=== PATIENT | male | born 1950 | race Caucasian/White ===

== ENCOUNTER → 2017-07-10 | Outpatient (CLI) | payer OTHER ==
[~2017-07-10] MED LIST: TAPE1TAB9 PO; WARF1TAB PO
--- NOTE | 2017-07-10 13:44 | DIAGNOSTIC IMAGING REPORT ---
L UPPER EXT JOINT WITHOUT CLINICAL HISTORY: 67 years-old Male with LEFT SHOULDER PAIN. Acute left shoulder pain with weakness status post fall 1 week prior COMPARISON: Chest radiograph 05/12/2013 TECHNIQUE: Multiplanar, multi sequence MRI of the left shoulder was performed without intravenous contrast. FINDINGS: ROTATOR CUFF: There is moderate tendinosis of the supraspinatus with low-grade partial-thickness articular sided tearing of the anterior insertional fibers measuring 4 x 5 mm nicely seen on images 8 and 9 of series 6 and image 18 series 9. No high-grade partial or full-thickness rotator cuff tear identified. Mild tendinosis of the infraspinatus. The teres minor and subscapularis tendons appear intact. Mild subscapularis tendinosis. The rotator cuff musculature is normal in morphology and signal. BICEPS TENDON: There is moderate tendinosis of the intra-articular long head biceps tendon without tear identified. The biceps adele and anchor are intact. Indeterminate 3 mm cystic focus is seen adjacent to the lesser tuberosity medial to the long head biceps tendon on image 15 series 4 which may reflect a small ganglion. LABRUM: There is mild fraying of the superior labrum without evidence of acute labral tear. There is no evidence for a paralabral cyst. GLENOHUMERAL JOINT: There is mild chondral thinning of the glenohumeral joint with mild joint space narrowing and marginal spurring. Subcortical cystic changes are seen involving the posterior facet greater tuberosity. There is a trace glenohumeral joint effusion. There is no loose body or debris present within the glenohumeral joint. ACROMIOCLAVICULAR JOINT: Moderate to severe degenerative changes of the AC joint with prominent subcortical cystic changes, marginal spurring with capsular hypertrophy, joint space narrowing and small joint effusion. No evidence of os acromiale. There is mild subacromial/subdeltoid bursitis. OUTLET SPACES: The suprascapular notch and quadrilateral space are without obstructing or space occupying lesions. BONE MARROW: No focal abnormality, fracture or marrow occupying lesion. SOFT TISSUES: The periarticular soft tissues are unremarkable. IMPRESSION: 1. Moderate tendinosis of the supraspinatus tendon with small low-grade partial-thickness articular sided tearing of the anterior insertional fibers, 5 mm. No high-grade partial or full-thickness rotator cuff tear identified. 2. Moderate subscapularis and mild infraspinatus tendinosis. 3. Moderate tendinosis of the intra-articular portion of the long head biceps tendon without discrete tear identified. 4. Moderate to severe degenerative changes of the AC joint with mild subacromial/subdeltoid bursitis. The above report was generated using voice recognition software. It may contain grammatical, syntax or spelling errors. Electronically signed by: Derrick Morley M.D. 07/10/2017 1:43 PM Dictated Date/Time: 07/10/2017 1:34 PM
== END | disposition home or self-care (01) ==
LOC: C.MRIBC 12:51
PROVIDERS: ATTEND Orthopaedic Surgery
DX: M75.102 Unspecified rotator cuff tear or rupture of left shoulder, not specified as traumatic (principal); M67.912 Unspecified disorder of synovium and tendon, left shoulder

== ENCOUNTER → 2017-09-13 | Outpatient (CLI) | payer OTHER ==
[2017-09-13 13:39] LABS: BASO % 0.9 %; BASO ABS # 0.07 K/uL (0-0.2); EOS % 2.9 %; EOS ABS # 0.23 K/uL (0-0.5); HEMATOCRIT 40.7 % (42-52); HEMOGLOBIN 13.5 g/dL (14.0-18.0); IG# 0.02 K/uL (0.00-0.02); LYMPH % 16.5 %; LYMPH ABS # 1.29 K/uL (1.2-3.4); MEAN CELL VOLUME 86.6 fL (80-100); MEAN CORPUSCULAR HEMOGLOBIN 28.7 pg (25-34); MEAN CORPUSCULAR HGB CONC 33.2 g/dl (32-36); MEAN PLATELET VOLUME 11.1 fL (7.4-10.4); MONO % 10.1 %; MONO ABS # 0.79 K/uL (0.11-0.59); NEUT % 69.3 %; PLATELET COUNT 248 K/uL (130-400); RED CELL DISTRIBUTION WIDTH CV 14.3 % (11.5-14.5); RED CELL DISTRIBUTION WIDTH SD 45.5 fL (36.4-46.3)
== END | disposition home or self-care (01) ==
LOC: C.LABBC 10:23
PROVIDERS: ATTEND Orthopaedic Surgery
DX: M25.50 Pain in unspecified joint (principal)

== ENCOUNTER 2019-01-27 09:47 | Inpatient (IN) ==
--- NOTE | 2019-01-01 14:18 | PAT Medication Instructions ---
Medication Instructions Date of Service January 01, 2019 Home Medications diclofenac sodium 75 mg PO UD PRN lisinopril-hydrochlorothiazide See Rx Instructions .ROUTE .COMPLEX ASK your surgeon for instructions diclofenac sodium 75 mg PO UD PRN DO NOT take the morning of surgery lisinopril-hydrochlorothiazide See Rx Instructions .ROUTE .COMPLEX Other Notes If you have any questions please call us at [phone] or [phone] or [phone] or [phone]
--- NOTE | 2019-01-02 12:01 | Anesthesiology Consultation ---
Date of Service January 02, 2019 Assessment & Plan (1) Encounter for pre-operative examination: - K+ 5.3 on preop labs: Discussed with Dr. Romano-- recommendation to recheck AM DOS. Chart Review Chart Review: Acceptable Risk for Surgery and Patient seen in Pre Admission Testing Teaching & Discussion Pre-Anesthesia Teaching/Discussion Notes: Instructed NPO after midnight before surgery,except medications with 15 cc of water. Medication instructions provided according to the PAT guidelines. History Surgery Operation Date: 01/27/19 10:40 Proposed Procedures p Left Total Knee Arthroplasty - Tano Perez MD Height/Weight Height: 6 ft 3 in Weight: 121.1 kg Allergies Allergy/AdvReac Type Severity Reaction Status Date / Time acetone Allergy Unknown eye Verified 01/02/19 11:57 swelling, trouble breathing, facial flushing aspirin Allergy Unknown hives and Verified 12/26/18 08:05 swelling Medications Home Medications Medication Instructions Recorded Confirmed Last Taken diclofenac sodium 75 mg PO UD PRN 12/26/18 12/26/18 Unknown lisinopril-hydrochlorothiazide See Rx Instructions .ROUTE .COMPLEX 12/26/18 12/26/18 Unknown Past Medical History Medical History HTN (hypertension) non-compliant with BP medication- recommended compliance leading up to surgery (patient voiced understanding at PAT visit) History of sleep apnea hx device- not currently using History of tick-borne disease hx multiple tick bites= s/p abx x 21 days (08/2018) Obesity Exercise / Class Metabolic Activity II 4-5 Yardwork/Stairs/Walk up hill Past Family History Family History Mother Family history of diabetes mellitus (DM) Father Family history of diabetes mellitus (DM) Past Surgical History Surgical History History of appendectomy History of back surgery X3 ? History of colonoscopy History of left cataract surgery History of left knee surgery X2? History of right cataract surgery History of right knee surgery History of total right knee replacement Past Anesthesia History No Family Hx of Anesthesia Complications and Other Awareness with right TKA History of PONV No Hx of PONV and No Hx of Motion Sickness Social History Smoking Status: Former smoker Do You Dip or Chew Tobacco: No Smoking End Date: QUIT 20 YEARS AGO Hx Alcohol Use: Yes Alcohol type: wine alcohol intake frequency: holidays/special occasions only Hx Substance Use: No substance use type: does not use Review of Systems Patient denies chest pain, shortness of breath, dyspnea on exertion, reflux, cough, wheezing, palpitations. Physical Exam Vital Signs VITALS BP 150/85 (Patient advised to followup with PCP regarding elevated BP) P 57 TEMP 98.0 SP02 99%RA RESP 18 PHYSICAL Full neck and c-spine range of motion. Full TMJ range of motion. TMD 3 finger breaths Mallampati Score 1 Dentition: full upper dentures, missing lower sides/molars Lungs: clear throughout to auscultation Cardiac: regular rate and rhythm, no murmurs noted Spine: normal Carotid arteries: negative bruit Extremities: no edema Testing Laboratory Results 01/02/19 12:22 01/02/19 12:28 PT 10.9 Seconds (9.0-12.0) 01/02/19 12:28 INR 1.1 (0.9-1.1) 01/02/19 12:28 APTT 25.9 Seconds (21.0-31.0) 01/02/19 12:28 Blood Type O Positive 01/02/19 12:22 Antibody Screen NEGATIVE 01/02/19 12:22 Electrocardiogram Date: 01/02/19 Findings: + SB @ (55) Chest X-Ray Date: 01/02/19 Findings: + NAD
--- NOTE | 2019-01-02 12:49 | XRay Report ---
XR chest Pre-admission PA/Lat CLINICAL HISTORY: PAT preoperative COMPARISON STUDY: No previous studies for comparison. FINDINGS: The bones soft tissues and hemidiaphragms are normal. The cardiomediastinal silhouette is n ormal. The lungs are clear. The pulmonary vasculature is normal. IMPRESSION: Negative chest. The above report was generated using voice recognition software. It may contain grammatical, syntax or spelling errors. Electronically signed by: Armando Allen M.D. 01/02/2019 12:48 PM
[2019-01-02 14:13] LABS: Basophils # (auto) 0.07 K/uL (0-0.2); Basophils % (auto) 1.1 %; Eosinophils # (auto) 0.12 K/uL (0-0.5); Eosinophils % (auto) 1.8 %; Hematocrit (blood only) 39.9 % (42-52); Hemoglobin 13.3 g/dL (14.0-18.0); Immature Granulocytes # (auto) 0.01 K/uL (0.00-0.02); Immature Granulocytes % (auto) 0.2 %; Lymphocytes # (auto) 1.64 K/uL (1.2-3.4); Lymphocytes % (auto) 24.9 %; Mean Corpuscular Hemoglobin 29.2 pg (25-34); Mean Corpuscular Hgb Conc 33.3 g/dL (32-36); Mean Corpuscular Volume 87.7 fL (80-100); Mean Platelet Volume 10.4 fL (7.4-10.4); Monocytes # (auto) 0.65 K/uL (0.11-0.59); Monocytes % (auto) 9.9 %; Neutrophils % (auto) 62.1 %; Platelet Count 297 K/uL (130-400); RDW Standard Deviation 44.7 fL (36.4-46.3); Red Blood Count 4.55 M/uL (4.7-6.1); White Blood Count 6.59 K/uL (4.8-10.8)
[2019-01-02 14:27] LABS: INR 1.1 (0.9-1.1); Partial Thromboplastin Time 25.9 Seconds (21.0-31.0); Prothrombin Time 10.9 Seconds (9.0-12.0)
[2019-01-02 15:19] LABS: BUN Creatinine Ratio 21.4 (10-20); Calcium 9.3 mg/dl (8.5-10.1); Creatinine Clr Calc Pharmacy 102.9 ml/min; Est GFR (African American) 94.3; Est GFR (Non-African American) 81.3; Potassium 5.3 mmol/L (3.5-5.1)
--- NOTE | 2019-01-25 11:35 | History and Physical Report ---
DATE OF ADMISSION: 01/27/2019 CHIEF COMPLAINT: Left knee pain. HISTORY OF PRESENT ILLNESS: A 68-year-old gentleman who is well known to me from treatment of his right knee pain with replacement back in May 2013 and persistent treatment of his left knee pain over the past several years. His left knee pain has gotten worse over time. This has been a gradual process. We put an injection in his knees for the past 5 years. It has become less successful over time. He describes pain mostly medial, but some global pain. The more he walks, the more it hurts. He has got some intermittent swelling, catching and giving way. He has got nighttime pain. The more he walks, the more it limits. He would like to proceed with surgical treatment. He does have a history of a left knee arthroscopy x2 in the past done elsewhere. PAST MEDICAL HISTORY: Past medical history significant for: 1. Mild obesity with BMI of 33.4. 2. BPH. PAST SURGICAL HISTORY: Include: 1. Left knee scope x2 with the last one done 15 years ago. 2. Appendectomy. 3. Back surgery x3. 4. Right knee replacement done 05/29/2013. 5. Right hand surgery. 6. Cataract surgery. ALLERGIES: Acetone. CURRENT MEDICATIONS: Diclofenac as needed. SOCIAL HISTORY: A 68-year-old male patient from [facility]. He is . No significant smoking history. FAMILY HISTORY: Noncontributory. REVIEW OF HISTORY: Negative for diabetes, neurologic problems, vascular problems, bleeding disorders. Denies any chest pain or shortness of breath. No signs of DVT or PE. No known bleeding problems. PHYSICAL EXAMINATION: GENERAL: Reveals a healthy, pleasant, middle-aged male. He ambulates independently. HEENT: Benign. NECK: Supple, no lymphadenopathy. LUNGS: Clear to auscultation. HEART: Regular rate and rhythm. ABDOMEN: Soft, nontender, nondistended. EXTREMITIES: Grossly neurovascularly intact except as follows: Examination of the knee reveals patient ambulates independently. He has got slight varus alignment to his knee. He is tender over the medial joint line. Small knee effusion. Range of motion is 5-125. He has got crepitance with knee motion. Examination of the right knee reveals well-healed incision over the front of his knee. Range of motion 0-125. No instability. Examination of left hip reveals a little bit of pain and stiffness with internal rotation. Negative straight leg raise. NEUROLOGIC: He is neurologically intact. X-RAYS: X-ray of the left knee reviewed. Shows moderate to advanced medial compartment DJD. He has got advanced patellofemoral arthritis. X-rays of the left hip reveal fairly mild hip DJD. ASSESSMENT: A 68-year-old gentleman status post right knee replacement with moderate to advanced left knee degenerative joint disease with a history of knee scoped x2 in the past done elsewhere. He has got some mild hip arthritis on this side, but his knee seems to be quite a bit worse than the hip. PLAN: We talked about treatment. He would like to proceed with left knee replacement. The risks and benefits of left total knee replacement were explained to the patient including but not limited to DVT, PE, , infection, neurological injury, vascular injury, bleeding problem, pain, limited range of motion, stiffness, failure to relieve symptoms, incomplete relief of symptoms, need for further surgery in future, fracture, leg length inequality, nerve palsy, etc. The patient understands and desires to proceed. Informed consent was obtained. He will hold his diclofenac 10 days preop. MTDD
[~2019-01-27 09:47] MED LIST changes: +ACETAMINOPHEN 500 MG TAB PO SCH; +BUPIVACAINE 0.5 % 5 MG/1 ML PF 10ML VIAL ONE; +BUPIVACAINE LIPOSOME/PF 266 MG, BUPIVACAINE/EPINEPHRINE 50 ML, SODIUM CHLORIDE 0.9% 30 ... INFIL SCH; +CEFAZOLIN 3000MG 72.5 ML IV SCH; +FAMOTIDINE 20 MG TAB PO SCH; +GABAPENTIN 300 MG CAP PO SCH; +LR 500ML BOLUS, THEN 15ML/HR IV SCH; +LR 60ML/HR IV SCH; +METOCLOPRAMIDE HCL 10 MG TABLET PO SCH; +ROPIVACAINE 0.5% 5 MG/ML 30 ML VIAL ONE; -TAPE1TAB9 PO; -WARF1TAB PO
[2019-01-27] MEDS ORDERED: MIDAZOLAM HCL 1 MG/ML 2ML VIAL ONE (10:02)
[2019-01-27] MEDS ORDERED: fentaNYL citrate 100 MCG/2 ML VIAL ONE (10:02)
[2019-01-27] MEDS ORDERED: LIDOCAINE HCL 2% 2 ML VIAL/AMP(20MG/ML) INFIL ONE (10:04)
[2019-01-27] MEDS ORDERED: ONDANSETRON INJ 2 MG/ML 2 ML VIAL ONE (10:04)
[2019-01-27] MEDS ORDERED: PROPOFOL IV EMULSION 10 MG/ML 20 ML VIAL IV ONE ×2 (10:04→10:39)
[2019-01-27] MEDS ORDERED: PHENYLEPHRINE HCL 10 MG/ML VIAL ONE (10:39)
--- NOTE | 2019-01-27 11:46 | History & Physical Bridge Note ---
Date of Service January 27, 2019 History & Physical Bridge Note I have examined the patient, reviewed the History & Physical and in the interval since the performance of the History & Physical I have noted the following changes of clinical significance: no changes noted
[2019-01-27] MEDS ORDERED: ePHEDrine sulfate 50 MG/ML AMP IV PRN (12:08)
[2019-01-27] MEDS ORDERED: ATROPINE SULFATE 0.1 MG/ML 10ML SYR IV PRN (12:08)
[2019-01-27] MEDS ORDERED: ONDANSETRON INJ 2 MG/ML 2 ML VIAL IV PRN ×2 (12:08→17:31)
[2019-01-27] MEDS ORDERED: fentaNYL citrate 100 MCG/2 ML VIAL IV PRN (12:08)
[2019-01-27] MEDS ORDERED: TRANEXAMIC ACID 1,000 MG in 0.9 % SODIUM CHLORIDE 100 ML IV ONE (12:30)
[2019-01-27] MEDS ORDERED: BUPIVACAINE LIPOSOME 1.3% 266 MG/20 ML VIAL ONE (13:34)
[2019-01-27] MEDS ORDERED: SODIUM CHLORIDE 0.9% PF 50 ML VIAL ONE (13:34)
[2019-01-27] MEDS ORDERED: BACITRACIN INJ 50,000 UNIT VIAL ONE (13:34)
[2019-01-27] MEDS ORDERED: BUPIVACAINE 0.25% 30 ML VIAL ONE (13:35)
[2019-01-27] MEDS ORDERED: EPINEPHrine INJ 1 MG/ML AMP ONE (13:35)
--- NOTE | 2019-01-27 15:41 | Post Operative Brief Note ---
PG Immediate Post Op with CF Date of Surgery January 27, 2019 Pre & Post Diagnosis Operation Date: 01/27/19 12:30 Pre-Op Diagnosis: LEFT KNEE DEGENERATIVE JOINT DISEASE W/KNEE PAIN Post-Op Diagnosis: LEFT KNEE DEGENERATIVE JOINT DISEASE W/KNEE PAIN Procedure Operation Date: 01/27/19 12:30 Actual Procedures p Left Total Knee Arthroplasty(Left) - Tano Perez MD Surgeon Tano Perez MD Electric Motor Fitter Mariana, PAC Estimated Blood Loss 50 Findings Consistent with Post-Op Diagnosis Fluids 1200 cc Specimens Specimen Description: A. Left Knee Bone and Tissue Anesthesia Type Spinal MAC Complications none Disposition Accompanied Patient To Recovery: No Disposition: Recovery Room
--- NOTE | 2019-01-27 16:14 | XRay Report ---
XR knee LT 2V routine CLINICAL HISTORY: Surgical Post Op COMPARISON: None. DISCUSSION: Anatomic post total left knee arthroplasty. Could contact between prosthetic in an Bone. Expected soft tissue postoperative change IMPRESSION: Anatomic alignment posttotal left knee arthroplasty. The above report was generated using voice recognition software. It may contain grammatical, syntax or spelling errors. Electronically signed by: Armando Allen M.D. 01/27/2019 4:13 PM
--- NOTE | 2019-01-27 16:39 | Anesthesiology Progress Note ---
Date of Service January 27, 2019 Anesthesia Post Procedure Vital Signs Vital Signs: Temp Pulse Pulse Resp BP Pulse Ox 01/27/19 16:25 36.3 C L 58 L 26 H 117/64 96 01/27/19 16:15 36.3 C L 59 L 22 133/68 100 01/27/19 16:05 36.3 C L 52 L 18 129/63 100 01/27/19 15:55 36.3 C L 71 23 144/72 H 100 01/27/19 15:47 36.3 C L 72 20 114/59 L 96 01/27/19 10:31 36.7 C 60 18 146/73 H 100 Transfer of Care Handoff Completed per policy Notes Mental Status: alert / awake / arousable and participated in evaluation Nausea / Vomiting: adequately controlled Pain: adequately controlled Airway Patency, RR, SpO2: stable & adequate BP & HR: stable & adequate Hydration State: stable & adequate Neuraxial Anesthesia: was administered and sensory block is resolving Anesthetic Complications: no major complications apparent and Pt Satisfied with anesthetic care
[2019-01-27] MEDS ORDERED: HYDROmorphone INJ 0.5 MG/0.5 ML SYR IV PRN (17:31)
[2019-01-27] MEDS ORDERED: METOCLOPRAMIDE HCL INJ 5 MG/ML 2 ML VIAL IV PRN (17:31)
[2019-01-27] MEDS ORDERED: TAMSULOSIN HCL 0.4 MG CAP PO PRN (17:31)
[2019-01-27] MEDS ORDERED: MAGNESIUM HYDROXIDE SUSP 30 ML UDC PO PRN (17:31)
[2019-01-27] MEDS ORDERED: NALOXONE HCL 0.4 MG/1 ML VIAL/CARP IV PRN (17:31)
[2019-01-27] MEDS ORDERED: SODIUM CHLORIDE 0.9% 1000ML 1,000 ML IV SCH (17:31)
[2019-01-27] MEDS ORDERED: ALUMINUM/MAGNESIUM SUSP 30 ML UDC PO PRN (17:31)
[2019-01-27] MEDS ORDERED: BISACODYL 10 MG SUPP PR PRN (17:31)
--- NOTE | 2019-01-27 18:02 | Operative Report ---
DATE OF OPERATION: 01/27/2019 SURGEON: Tano Perez MD. PAD EXTRACTION TENDER: EUGENE Joseph. PREOPERATIVE DIAGNOSIS: Left knee degenerative joint disease. POSTOPERATIVE DIAGNOSIS: Left knee degenerative joint disease. PROCEDURE PERFORMED: Left cemented posterior stabilized total knee arthroplasty. COMPLICATIONS: None. ESTIMATED BLOOD LOSS: 50 mL. FLUID REPLACEMENT: 1200 mL crystalloid fluid replacement. TOURNIQUET TIME: 60 minutes at 300 mmHg. ANESTHESIA: Spinal with adductor canal block. DRAINS: None. SPECIMENS: Left knee sent for pathology. OPERATIVE INDICATIONS: The patient is a 68-year-old gentleman who has had a long history of knee problems. He underwent a right knee replaced about 5 years ago and has done well from this. Over the past several years, he developed increased pain and discomfort in his left knee. We have been treating him conservatively over the past 5 years. This became less successful over time. He has global pain. He elected to proceed with total knee arthroplasty. OPERATIVE FINDINGS: Operative findings revealed advanced left knee DJD. He had fairly extensive or spotty grade 4 changes in all 3 compartments. He had a moderate size joint effusion. He had osteophytes in all 3 compartments. Not much eburnation, but full thickness cartilage loss. OPERATIVE IMPLANTS: Operative implants consisted of: 1. Biomet Vanguard size 70 left posterior stabilized femoral component. 2. Biomet size 79 tibial tray. 3. A 10 mm posterior stabilized polyethylene insert. 4. A 34 x 8.5 all poly patella. OPERATIVE PROCEDURE: The patient was taken to the operating room, identified and placed on the operating table in supine position. All contact areas were appropriately padded. IV antibiotics were provided by anesthesia team. Spinal anesthetic and adductor canal block had been provided in the holding area. Jay catheter was placed in sterile fashion. A left thigh tourniquet was then placed and left lower extremity was then prepped and draped in usual sterile fashion. Left leg was elevated and exsanguinated with Esmarch and tourniquet was placed at 300 mmHg. An anterior approach to the left knee was then performed through a longitudinal incision centered over the patella. Sharp dissection was carried through subcutaneous tissue down to the level of the extensor mechanism. A medial parapatellar arthrotomy incision was made. Some subperiosteal dissection was carried out medially. The fat pad resected from beneath the patellar tendon. The lateral patellofemoral ligament was released. The patella was everted and knee was flexed. The osteophytes were taken off the distal femur. The ACL and PCL were then released from the distal femur and the tibia subluxated anteriorly. The external tibial alignment jig was then placed in the anterior face of the tibia and adjusted 14 mm medially. Proximal tibial cut was made to remove about 2-3 mm of bone from the medial side. The tibia was then sized to a size 79. Attention was then drawn to the femur. The distal femur was entered with a sharp drill bit. Intramedullary canal was suctioned. A left 6-degree valgus cutting guide was placed. Distal femoral cutting block was pinned in place. Distal femoral cut was made to take an additional 3 mm of bone off the distal femur. The femur was then sized to a size 70. We did downsize this slightly. The AP cutting block was pinned parallel to the epicondylar axis, which was 6 degrees of external rotation. The anterior cut, anterior chamfer cut, posterior cut, posterior chamfer cuts were made. Box cutting guide was placed and adjusted slightly to size and the box cut was made. The knee was flexed. The remnants of the medial and lateral menisci were excised. The osteophytes were taken off the posterior aspect of the femur. A trial femoral component was placed. The tibial tray was pinned in maximum external rotation and drill and stem punch were used to create defect in proximal tibia for the tibial tray. The knee was then trialed and the 10 mm insert fit most appropriately. Attention was then drawn to the patella. The patella was cleaned of all soft tissues. Patella thickness measured 23 mm in thickness and was cut down to 14. It was sized to a size 31 patella. Lug holes were drilled for the 31 patella. Lateral osteophyte was removed. Patella button was placed. Knee was taken through range of motion and patella tracked nicely with no-thumb test. Attention turned toward placement of permanent components. All trial components were removed. Bone plug was placed in the distal femur to limit blood loss. A double batch of Palacos G cement was mixed. A Biomet Vanguard size 70 left posterior stabilized femoral component, size 79 tibial tray, 10 mm posterior stabilized polyethylene insert, and a 34 x 8.5 all poly patella then cemented in place. Knee was brought out into full extension until the cement hardened. A final cement check was then performed. Pericapsular tissues were injected with 60 cc of .5% Marcain with Epi. The tourniquet was then let down for a final tourniquet time of 60 minutes. Hemostasis was assured using electrocautery. Extensor mechanism was then closed with combination of #1 PDS suture and #1 Vicryl suture in [id number] fashion. Extensor mechanism was checked and found to be intact. Subcutaneous tissue was then closed with #2 Dexon suture in a buried interrupted fashion. Skin was closed with skin bertram. Leg was then cleaned and dried and a sterile dressing of Xeroform, 4 x 4, sterile cast padding and Han bandage were applied. The patient then transferred to the recovery room in stable condition. The patient tolerated the procedure well with no complication. All needle and sponge counts were correct at the end of the operation. I attest to the content of the Intraoperative Record and any orders documented therein. Any exceptions are noted below. LATRICIA
[2019-01-27] MEDS: ASCORBIC ACID 500 MG TAB PO SCH (18:52)
[2019-01-27] MEDS: OXYCODONE HCL IR 5 MG TAB (IMMEDIATE RELEASE) PO PRN ×2 (18:53→22:56)
[2019-01-27] MEDS: FERROUS GLUCONATE 324 MG TAB PO SCH (18:53)
[2019-01-27] MEDS: KETOROLAC TROMETHAMINE 15 MG/ML VIAL IV SCH ×2 (18:56→23:46)
[2019-01-27] MEDS: DOCUSATE SODIUM 100 MG CAP PO SCH (21:00)
[2019-01-27] MEDS: TAPENTADOL HCL ER 50 MG TABCR PO SCH (21:00)
[2019-01-27] MEDS: SENNA 8.6 MG TAB PO SCH (21:01)
[2019-01-27] MEDS: ACETAMINOPHEN 500 MG TAB PO SCH (21:01)
[2019-01-27] MEDS: CEFAZOLIN 2000MG 2,000 MG/15 ML SYR IV SCH (21:09)
[2019-01-27] MEDS ORDERED: TRANEXAMIC ACID 1,000 MG in 0.9 % SODIUM CHLORIDE 100 ML IV SCH (22:00)
[2019-01-27] MEDS: ASPIRIN 81 MG ECTAB PO SCH (22:54)
[2019-01-28] MEDS: CEFAZOLIN 2000MG 2,000 MG/15 ML SYR IV SCH (05:30)
[2019-01-28] MEDS: KETOROLAC TROMETHAMINE 15 MG/ML VIAL IV SCH ×4 (05:30→23:54)
[2019-01-28] MEDS: ACETAMINOPHEN 500 MG TAB PO SCH ×3 (05:31→21:29)
[2019-01-28 06:03] LABS: Hematocrit (blood only) 34.1 % (42-52); Mean Corpuscular Hemoglobin 28.4 pg (25-34); Mean Corpuscular Hgb Conc 32.3 g/dL (32-36); Mean Corpuscular Volume 87.9 fL (80-100); Mean Platelet Volume 10.4 fL (7.4-10.4); Platelet Count 213 K/uL (130-400); RDW Coefficient of Variation 13.2 % (11.5-14.5); RDW Standard Deviation 42.7 fL (36.4-46.3); Red Blood Count 3.88 M/uL (4.7-6.1); White Blood Count 8.45 K/uL (4.8-10.8)
[2019-01-28 06:31] LABS: BUN Creatinine Ratio 16.7 (10-20); Creatinine Clr Calc Pharmacy 71.1 ml/min; Est GFR (African American) 60.6; Est GFR (Non-African American) 52.3; Potassium 3.9 mmol/L (3.5-5.1)
[2019-01-28] MEDS: ASPIRIN 81 MG ECTAB PO SCH ×2 (08:01→19:55)
[2019-01-28] MEDS: TAPENTADOL HCL ER 50 MG TABCR PO SCH ×2 (08:01→19:55)
[2019-01-28] MEDS: LISINOPRIL/HCTZ 10/12.5MG TAB PO SCH (08:01)
[2019-01-28] MEDS: FERROUS GLUCONATE 324 MG TAB PO SCH ×2 (08:01→17:36)
[2019-01-28] MEDS: ASCORBIC ACID 500 MG TAB PO SCH ×2 (08:02→17:36)
[2019-01-28] MEDS: MULTIVITAMIN TAB PO SCH (08:02)
[2019-01-28] MEDS: DOCUSATE SODIUM 100 MG CAP PO SCH ×2 (08:02→19:55)
--- NOTE | 2019-01-28 09:35 | Anesthesiology Progress Note ---
Date of Service January 28, 2019 Anesthesia Post Procedure Vital Signs Vital Signs: Temp Pulse Pulse Resp BP Pulse Ox 01/28/19 07:15 36.5 C 60 16 143/78 H 98 01/28/19 03:22 36.4 C L 60 16 154/75 H 97 01/27/19 22:43 36.4 C L 56 L 16 143/76 H 96 01/27/19 20:41 36.3 C L 72 16 163/84 H 96 01/27/19 19:40 36.4 C L 66 16 150/88 H 98 01/27/19 18:34 36.4 C L 80 16 135/77 99 01/27/19 18:02 36.3 C L 72 18 137/77 98 01/27/19 17:30 36.4 C L 72 16 133/75 96 01/27/19 16:55 36.6 C 52 L 20 119/67 94 01/27/19 16:45 36.6 C 52 L 21 116/65 98 01/27/19 16:35 36.6 C 50 L 21 114/65 95 01/27/19 16:25 36.3 C L 58 L 26 H 117/64 96 01/27/19 16:15 36.3 C L 59 L 22 133/68 100 01/27/19 16:05 36.3 C L 52 L 18 129/63 100 01/27/19 15:55 36.3 C L 71 23 144/72 H 100 01/27/19 15:47 36.3 C L 72 20 114/59 L 96 01/27/19 10:31 36.7 C 60 18 146/73 H 100 Notes Mental Status: alert / awake / arousable and participated in evaluation Patient Amnestic to Procedure: Yes Nausea / Vomiting: adequately controlled Pain: adequately controlled Airway Patency, RR, SpO2: stable & adequate Hydration State: stable & adequate Neuraxial Anesthesia: was administered and sensory block is resolving Anesthetic Complications: no major complications apparent and Pt Satisfied with anesthetic care
--- NOTE | 2019-01-28 15:37 | Progress Note ---
DATE: 01/28/2019 SUBJECTIVE: A 68-year-old gentleman postop day #1 from a left knee replacement. He is doing pretty well. He is having some pain but responds well to pain meds. No chest pain or shortness of breath. Not feeling dizzy or lightheaded. OBJECTIVE: VITAL SIGNS: Temperature 36.7. Vital signs stable. GENERAL: Shows a pleasant, middle-aged male. He is sitting on bed, looks quite comfortable. EXTREMITIES: Examination of the left leg reveals the leg to be well aligned. Dressing is clean, dry, and intact. He can dorsiflex and plantarflex his foot appropriately. He is neurologically intact. LABORATORY DATA: Hemoglobin is 11.0. Hematocrit 34.1. Electrolytes are stable. ASSESSMENT: A 68-year-old gentleman postop day #1 from left knee replacement, doing pretty well. Pain is controlled. He is neurologically intact. PLAN: 1. DVT prophylaxis including thigh-high TEDs, SCDs, and aspirin twice a day. 2. PT/OT. Weight bear as tolerated. Left total knee protocol. 3. Pain control, doing well with current pain regimen. 4. Disposition: He is planning to be discharged to home and he is going to do outpatient therapy locally.
[2019-01-28] MEDS: OXYCODONE HCL IR 5 MG TAB (IMMEDIATE RELEASE) PO PRN (17:04)
[2019-01-28] MEDS: SENNA 8.6 MG TAB PO SCH (19:55)
[2019-01-29] MEDS: ACETAMINOPHEN 500 MG TAB PO SCH (06:09)
[2019-01-29] MEDS: KETOROLAC TROMETHAMINE 15 MG/ML VIAL IV SCH ×2 (06:10→10:51)
[2019-01-29] MEDS: OXYCODONE HCL IR 5 MG TAB (IMMEDIATE RELEASE) PO PRN (07:22)
[2019-01-29] MEDS: FERROUS GLUCONATE 324 MG TAB PO SCH (07:23)
[2019-01-29] MEDS: ASCORBIC ACID 500 MG TAB PO SCH (07:23)
[2019-01-29] MEDS: MULTIVITAMIN TAB PO SCH (07:23)
[2019-01-29] MEDS: ASPIRIN 81 MG ECTAB PO SCH (07:23)
[2019-01-29] MEDS: DOCUSATE SODIUM 100 MG CAP PO SCH (07:24)
[2019-01-29] MEDS: LISINOPRIL/HCTZ 10/12.5MG TAB PO SCH (07:24)
[2019-01-29] MEDS: TAPENTADOL HCL ER 50 MG TABCR PO SCH (07:26)
--- NOTE | 2019-01-29 08:31 | Progress Note ---
DATE: 01/29/2019 SUBJECTIVE: A 68-year-old gentleman postop day 2 from left knee replacement. Doing pretty well. Having some minor pain, but very manageable. No chest pain or shortness of breath. Not feeling dizzy or lightheaded. OBJECTIVE: VITAL SIGNS: Temperature 36.8. Vital signs stable. GENERAL: Physical examination shows a pleasant, middle-aged male. He is sitting up and eating his breakfast. Looks pretty comfortable. EXTREMITIES: Examination of the left leg reveals the leg to be well aligned. Dressing is clean, dry and intact. Calf is soft and supple. He is neurologically intact. ASSESSMENT: A 68-year-old gentleman postop day 2 from a left knee replacement, doing pretty well. Pain controlled. PLAN: 1. DVT prophylaxis including thigh-high TEDs, SCDs, and aspirin twice a day. 2. PT/OT. Weight bear as tolerated. Left total knee protocol. 3. Pain control, doing well with current pain regimen. 4. Disposition: Plan to discharge to home. He is going to do outpatient therapy.
--- NOTE | 2019-01-31 01:49 | Discharge Summary ---
ADMITTING PHYSICIAN AND SURGEON: Dr. Tano Perez. ADMITTING DIAGNOSIS: Left knee degenerative joint disease. SURGERY PERFORMED: Left total knee arthroplasty. SECONDARY DIAGNOSES: Mild obesity, benign prostatic hypertrophy. CONSULTS: None obtained. HISTORY AND PHYSICAL EXAMINATION: Well documented in the patient's chart. HOSPITAL COURSE: The patient was admitted on 01/27/2019, underwent total knee arthroplasty, tolerated the procedure well. There were no complications. He was transferred to the PACU postoperatively and later to the orthopedic floor for further care. He was given Ancef for antibiotic prophylaxis, DENIA stockings, SCDs and aspirin for DVT prophylaxis. Hemoglobin, hematocrit and vital signs were monitored during his hospital stay and remained stable, did not require any blood transfusions. There were no complications. By postoperative day 2, he was tolerating a regular diet, pain was controlled with oral pain medicine. He was participating in physical therapy. Postop day 2, he was discharged home. He was given printed discharge instructions as well as new prescriptions for extra-strength Tylenol, aspirin, and oxycodone. Continue his home medicines. Continue physical therapy, weightbearing as tolerated, DENIA stockings. Follow up approximately 2 weeks postoperatively or sooner if there are any problems or concerns.
== END 2019-01-29 14:00 | disposition home or self-care (01) | DRG 470 ==
LOC: ASU 09:47 → 3E 15:44